=== PATIENT | female | born 1975 | race Caucasian/White ===

== ENCOUNTER 2020-09-29 14:00 | Outpatient (RCR) | payer MEDICARE, MEDICAID, SELFPAY | END 2020-10-14 23:55 | disposition home or self-care (01) | LOC: HO.PAOS 14:00 | PROVIDERS: Visit Provider Psychologist | DX: F43.10 Post-traumatic stress disorder, unspecified (principal) | CPT/HCPCS: 90791; 90834 ==

== ENCOUNTER 2021-04-06 08:52 | Outpatient (REF) | payer MEDICARE, MEDICAID, SELFPAY ==
--- NOTE | 2021-04-06 09:48 | MHC.AU.HAS ---
Hearing Aid Evaluation Date of Visit: 04/06/21 Historical Information: Description of Hearing: Right: Moderate rising to mild and sloping to moderately-severe sensorineural hearing loss Left: Normal hearing Summary: Patient is followed by ENT, Dr. Lebalnc. She reports that last year, she experienced symptoms in her right ear that were assumed to be an ear infection. 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 Patient was left with residual hearing loss. Word discrimination/clarity is still excellent, which is a good prognostic factor for amplification. Patient reports the hearing loss has been negatively impacting her communication at home and work. Hearing aid options were discussed. Patient would like to try an ITC style, as she does not want it to interfere with her glasses. 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
== END 2021-04-06 08:53 | disposition home or self-care (01) ==
LOC: HO.HAP 08:52
PROVIDERS: PCP Internal Medicine; Visit Provider Otolaryngology
DX: Z46.1 Encounter for fitting and adjustment of hearing aid (principal); H90.41 Sensorineural hearing loss, unilateral, right ear, with unrestricted hearing on the contralateral side
CPT/HCPCS: 92590; V5275

== ENCOUNTER 2021-04-28 08:54 | Outpatient (REF) | payer MEDICARE, MEDICAID, SELFPAY ==
--- NOTE | 2021-04-28 09:40 | MHC.AU.HAR ---
Hearing Instrument Fitting- Adult- Right Ear Date of Visit: 04/28/21 Hearing Instruments Dispensed: Right Ear: Talent Acquisition Coordinator: Cal[employer] Model: [employer]. M70-312 Serial Number: [id number] Repair Warranty: 05/13/2024 Loss and Damage Warranty: 05/13/2024 Service Plan: 04/28/2022 Battery Size: 312 Color: Black Type of Wax Guard: CeruStop Summary of Fitting: Feedback manager food safety was run. Verifit performed and levels adjusted to better reach targets. Target gain set to 100%. The instrument fits well in the ear. Patient reported her voice was a bit loud and sounded like she was talking into a microphone. Lowered to 90%, and patient reported an improvement in sound. Patient was pleased with the instrument and did not feel any additional adjustments were necessary at this time. Hearing aid care and use were discussed and practiced. The hearing aid was paired to the marcio. Recommendations: Recommendations: Patient will call if she feels hearing aid follow-up is necessary. Diagnosis Code(s): Primary Diagnosis: H90.41 SNHL Unilateral Right Ear, W/Unrestricted Contralateral Hearing Signature: Provider: Blayne Robin, CCC-A
== END 2021-04-28 08:55 | disposition home or self-care (01) ==
LOC: HO.HAP 08:54
PROVIDERS: Visit Provider Otolaryngology
DX: Z46.1 Encounter for fitting and adjustment of hearing aid (principal); H90.41 Sensorineural hearing loss, unilateral, right ear, with unrestricted hearing on the contralateral side
CPT/HCPCS: V5011; V5020; V5241; V5255; V5266